=== PATIENT | male | born 1970 | race Two or more races ===

== ENCOUNTER 2017-03-30 15:31 | Emergency (ER) | payer SELFPAY ==
[~2017-03-30] VITALS: Ht 182.9 cm; Wt 86.2 kg
[2017-03-30 15:54] LABS: BASOPHILS # (AUTO) 0.1 /CMM (0.0-0.2); BASOPHILS % (AUTO) 0.9 % (0.0-2.0); EOSINOPHILS # (AUTO) 0.8 /CMM (0.0-0.7); EOSINOPHILS % (AUTO) 12.2 % (0.0-6.0); HEMATOCRIT 33 % (39-51); HEMOGLOBIN 10.6 g/dL (13.5-17.5); LYMPHOCYTES # (AUTO) 1.7 /CMM (0.8-4.8); LYMPHOCYTES % (AUTO) 25.5 % (20.0-44.0); MEAN CORPUSCULAR HEMOGLOBIN 27 PG (26.0-33.0); MEAN CORPUSCULAR HGB CONC 32 g/dl (31.0-36.0); MEAN CORPUSCULAR VOLUME 84 fL (80-96); MONOCYTES # (AUTO) 0.5 /CMM (0.1-1.30); MONOCYTES % (AUTO) 7.2 % (2.0-12.0); NEUTROPHILS # (AUTO) 3.6 /CMM (1.8-8.9); NEUTROPHILS % (AUTO) 54.2 % (43.0-81.0); PLATELET COUNT (AUTO) 231 /CMM (150-450); RDW COEFFICIENT OF VARIATION 16.1 (11.5-15.0); RED BLOOD CELL COUNT(AUTO) 3.92 MIL/uL (4.5-6.0); WHITE BLOOD COUNT (AUTO) 6.6 K/uL (4.3-11.0)
[2017-03-30] MEDS ORDERED: HYDROCODONE/APAP 5/325MG 1 EACH TABLET ONE (15:58)
[2017-03-30] MEDS ORDERED: ONDANSETRON 4 MG TAB.RAPDIS ONE (15:58)
[2017-03-30] MEDS: HYDROCODONE/APAP 5/325MG 1 EACH TABLET PO ONE (16:00)
[2017-03-30] MEDS: ONDANSETRON 4 MG TAB.RAPDIS SL ONE (16:00)
[2017-03-30 16:09] LABS: CALCIUM, SERUM 8.9 mg/dL (8.5-10.1); POTASSIUM 4.6 mmol/L (3.5-5.1)
--- NOTE | 2017-03-30 16:10 | NUR ---
[facility] [address] [facility] C/O NON RADIATING BACK PAIN, PT WAS D/C YESTERDAY. BACK PAIN 01/19.
--- NOTE | 2017-03-30 16:20 | NUR ---
Patient discharged to home in stable condition. Written and verbal after care instructions given. Patient verbalizes understanding of instruction.
[2017-03-30 16:21] VITALS: BP 129/76
--- NOTE | 2017-03-30 16:25 | NUR ---
GABRIELE received a call from charger tester Gener in ED requesting for social service consult for homelessness. GABRIELE met with pt. and his bedside. Pt. is alert and oriented x4. Pts' states that they have been homeless for the past few years. They both receive SSI benefits. When SW inquired as to what they do with their money, the stated, they do not budget well. GABRIELE gave pt. and his homeless resources and winter correction list. Pt. to be discharged to [address] [place] [address], for the shuttle cotton picker for the winter correction at [facility]. GABRIELE arranged for taxi voucher for pt. to be transported to the above mentioned address. GABRIELE also informed pt. to go to [facility] to refill his prescriptions since they offer a discounted program. No other social service needs are required at this time.
== END 2017-03-30 16:22 | disposition home or self-care (01) ==
LOC: ER 15:33
DX: M54.5 Low back pain (principal); D64.9 Anemia, unspecified; I12.9 Hypertensive chronic kidney disease with stage 1 through stage 4 chronic kidney disease, or unspecified chronic kidney disease; N18.9 Chronic kidney disease, unspecified; E11.22 Type 2 diabetes mellitus with diabetic chronic kidney disease; D63.1 Anemia in chronic kidney disease; E78.00 Pure hypercholesterolemia, unspecified; F17.210 Nicotine dependence, cigarettes, uncomplicated; Z88.1 Allergy status to other antibiotic agents; Z95.818 Presence of other cardiac implants and grafts
CPT/HCPCS: 36415; 80048; 85025; 99284; A4606; Q0162; Z7610

== ENCOUNTER 2017-04-03 17:35 | Inpatient (IN) | payer SELFPAY ==
[~2017-04-03] VITALS: Ht 182.9 cm; Wt 83.2 kg
--- NOTE | 2017-04-03 17:42 | NUR ---
PT ELZBIETA FROM THE STREETS TO ER BED 15. C/O DIFFUSE ABDOMINAL PAIN., ANURIA. FEVER X 3 DAYS NOW. HYPERTENSIVE SAND MILL OPERATOR FACING SAND. GOWNED AND PLACED ON MONITOR. AWAITING MD CROWLEY.
--- NOTE | 2017-04-03 18:30 | NUR ---
[place] SAM AT BEDSIDE FOR EVAL.
--- NOTE | 2017-04-03 18:42 | NUR ---
Note marcello in EDM - 04/03/17 at 1849 by ELSA PT BIBRA FROM THE STREETS TO ER BED 15. C/O DIFFUSE ABDOMINAL PAIN., ANURIA. FEVER X 3 DAYS NOW. 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 GOWNED AND PLACED ON MONITOR. AWAITING MD CROWLEY.
--- NOTE | 2017-04-03 18:42 | NUR ---
IV LINE STARTED BLOOD DRAWN AND SENT TO LAB.
--- NOTE | 2017-04-03 18:49 | NUR ---
PT TO RADIOLOGY FOR ABDOMINAL CT SCAN VIA WHEELCHAIR.
[2017-04-03] MEDS ORDERED: IV NS 0.9% 1,000 ML BAG IV ONE (19:00)
[2017-04-03 19:02] LABS: BASOPHILS % (AUTO) 0.4 % (0.0-2.0); EOSINOPHILS # (AUTO) 0.5 /CMM (0.0-0.7); EOSINOPHILS % (AUTO) 6.9 % (0.0-6.0); HEMATOCRIT 38 % (39-51); HEMOGLOBIN 12.6 g/dL (13.5-17.5); LYMPHOCYTES # (AUTO) 0.6 /CMM (0.8-4.8); LYMPHOCYTES % (AUTO) 7.8 % (20.0-44.0); MEAN CORPUSCULAR HEMOGLOBIN 27 PG (26.0-33.0); MEAN CORPUSCULAR HGB CONC 33 g/dl (31.0-36.0); MEAN CORPUSCULAR VOLUME 82 fL (80-96); MONOCYTES # (AUTO) 0.4 /CMM (0.1-1.30); NEUTROPHILS # (AUTO) 5.8 /CMM (1.8-8.9); NEUTROPHILS % (AUTO) 78.9 % (43.0-81.0); PLATELET COUNT (AUTO) 227 /CMM (150-450); RDW COEFFICIENT OF VARIATION 15.8 (11.5-15.0); RED BLOOD CELL COUNT(AUTO) 4.64 MIL/uL (4.5-6.0); WHITE BLOOD COUNT (AUTO) 7.3 K/uL (4.3-11.0)
[2017-04-03] MEDS ORDERED: LIDOCAINE 2% JEL UROJET 10 ML MM ONE (19:06)
[2017-04-03 19:15] LABS: CARBON DIOXIDE 22 mmol/L (21-32); CHLORIDE 111 mmol/L (98-107); GLUCOSE 171 mg/dL (74-106); POTASSIUM 4.8 mmol/L (3.5-5.1); SODIUM SERUM 139 mmol/L (136-145); UREA NITROGEN, BLOOD 19 mg/dL (7-18)
[2017-04-03 19:25] LABS: ALANINE AMINOTRANSFERASE 22 U/L (12-78); ALBUMIN 2.8 g/dL (3.4-5.0); ALKALINE PHOSPHATASE 149 U/L (46-116); ASPARTATE AMINOTRANSFERASE 17 U/L (15-37); BILIRUBIN,TOTAL 0.2 mg/dL (0.2-1.0); LIPASE 102 U/L (73-393); TOTAL PROTEIN, SERUM 7.5 g/dL (6.4-8.2)
[2017-04-03 19:29] LABS: TROPONIN I < 0.017 ng/mL (0.00-0.056)
[2017-04-03 19:54] LABS: INR 0.96 (0.87-1.13)
[2017-04-03] MEDS ORDERED: MORPHINE SULFATE INJ 2 MG/ML DISP.SYRIN IV ONE (20:00)
[2017-04-03] MEDS ORDERED: MORPHINE SULFATE INJ 4 MG/ML DISP.SYRIN ONE (20:03)
[2017-04-03 20:04] LABS: APPEARANCE,URINE Slightly Cloudy (CLEAR); BILIRUBIN,URINE Negative (NEGATIVE); BLOOD, URINE Moderate Ery/uL (NEGATIVE); COLOR,URINE Yellow (YELLOW); KETONES,URINE Negative (NEGATIVE); LEUKOCYTE ESTERASE ,URINE Negative (NEGATIVE); NITRITE, URINE Negative (NEGATIVE); PH,URINE 5.5 (5.0-8.0); PROTEIN,URINE >=300 mg/dl (NEGATIVE); UGLUCOSE 100 MG/DL mg/dL (NEGATIVE); UROBILINOGEN,URINE 0.2 EU/dL (0.2)
[2017-04-03 20:15] LABS: WBC,URINE 0-2 /HPF (0-3)
[2017-04-03 20:16] LABS: BACTERIA,URINE Few /HPF (None Seen); SQUAMOUS EPITHELIAL CELL,UR Few /HPF (None Seen); URINE AMORPHOUS URATE Many /HPF (None Seen)
[2017-04-03] MEDS ORDERED: OSELTAMIVIR PHOSPHATE 75 MG CAPSULE ONE (22:40)
[2017-04-03] MEDS ORDERED: CEFTRIAXONE 1GM BAG (ER ONLY) 50 ML IV ONE (22:40)
[2017-04-03] MEDS ORDERED: IV NS 0.9% 1,000 ML IV PRN (22:57)
[2017-04-03] MEDS ORDERED: HYDROCODONE/APAP 10/325MG 1 EA TABLET PO PRN ×2 (23:00→23:45)
[2017-04-03] MEDS ORDERED: ZOLPIDEM TARTRATE 5 MG TABLET PO PRN ×2 (23:00→23:45)
[2017-04-03] MEDS ORDERED: HYDROCODONE/APAP 5/325MG 1 EACH TABLET PO PRN ×2 (23:00→23:45)
[2017-04-03] MEDS ORDERED: MAG HYDROX/AL HYDROX/SIMETH 30 ML UDC PO PRN ×2 (23:00→23:45)
[2017-04-03] MEDS ORDERED: OSELTAMIVIR PHOSPHATE 75 MG CAPSULE PO ONE (23:00)
[2017-04-03] MEDS ORDERED: ACETAMINOPHEN 325 MG TABLET PO PRN (23:00)
[2017-04-03] MEDS ORDERED: ONDANSETRON HCL/PF 4 MG/2 ML VIAL IVP PRN ×2 (23:00→23:45)
[2017-04-03] MEDS ORDERED: Z GUARD REMEDY 2 OZ OINT TP PRN ×2 (23:00→23:45)
[2017-04-03] MEDS ORDERED: MAGNESIUM HYDROXIDE 30 ML UDC PO PRN ×2 (23:00→23:45)
[2017-04-03] MEDS ORDERED: CEFTRIAXONE 1 G in IV D5W 50 ML IV SCH ×2 (23:00→23:45)
[2017-04-03] MEDS ORDERED: CEFTRIAXONE 1GM BAG (ER ONLY) 1 GM/50 ML PIGGYBACK IV ONE (23:00)
--- NOTE | 2017-04-03 23:05 | NUR ---
REPORT GIVEN TO SHAN. PT AWAITING TRANSFER TO FLOOR.
[2017-04-04] VITALS: BP 134/103
[2017-04-04 00:10] VITALS: BP 134/103
--- NOTE | 2017-04-04 00:10 | NUR ---
RN NOTES RECEIVED PT IN ER WITH DX. OF UTI, FLU, RENAL FAILURE, A/OX4, HOMELESS, SR ON TELE MONITOR HR-98, TEMP 102- DR. GARCIA,MONY AT BEDSIDE, HE'S AWARE OF PT. TEMPERATURE,BED BATH RENDERED ADMISSION INSTRUCTION WAS GIVEN , CALL LIGHT WITHIN REACH, SIDERAILS UPX2 CONTINUE TO MONITOR
[2017-04-04] MEDS: IV NS 0.9% 1,000 ML IV PRN ×2 (01:51→15:56)
[2017-04-04 04:46] VITALS: BP 161/86
[2017-04-04] MEDS ORDERED: ACYCLOVIR IV 1 GM in IV D5W 250 ML IV SCH (05:00)
[2017-04-04] MEDS ORDERED: ACYCLOVIR IV 1 GM/20 ML VIAL IV ONE (05:00)
[2017-04-04] MEDS ORDERED: HYDROCODONE/APAP 5/325MG 1 EACH TABLET ONE (05:24)
[2017-04-04] MEDS ORDERED: ACETAMINOPHEN 325 MG TABLET ONE (05:25)
--- NOTE | 2017-04-04 05:33 | NUR ---
RN NOTES COMPLAINED OF GENERALIZED PAIN- NORCO 5/325 MG PO GIVEN ORDERED, V/S STABLE
[2017-04-04] MEDS: ACETAMINOPHEN 325 MG TABLET PO PRN ×2 (05:48→16:28)
--- NOTE | 2017-04-04 05:48 | NUR ---
RN NOTES PT HAS FEVER OF 102- TYLENOL 650 MG PO GIVEN ORDER
--- NOTE | 2017-04-04 06:12 | NUR ---
RN NOTES SPOKE TO MONY CARPENTER AND CLARIFY PT. DIET. DR. GARCIA WANTS PT ON NPO EXCEPT MEDS AND ACCU CHECK ORDER WAS GIVEN. ORDER NOTED AND CARRIED OUT
[2017-04-04] MEDS: BLOOD SUGAR DIAGNOSTIC 1 EACH STRIP IN SCH ×4 (06:26→22:17)
[2017-04-04] MEDS ORDERED: INSULIN REGULAR, HUMAN 100 UNIT/ML 3 ML VIAL SQ PRN (06:30)
[2017-04-04] MEDS ORDERED: DEXTROSE 50%-WATER 50 ML DISP.SYRIN IV PRN (06:30)
--- NOTE | 2017-04-04 06:32 | NUR ---
RN NOTES PT. TEMP WENT DOWN TO 99.8, BLOOD SUGAR--148- PT IS ON NPO NO COVERAGE GIVEN, MORNING CARER RENDERED, CALL LIGHT WITHIN REACH, SIDERAILS UP[X2 PT. NEEDS ATTENDED
--- NOTE | 2017-04-04 07:40 | NUR ---
HOT MILL SHEARER OPENING NOTE PATIENT IS ALERT AND ORIENTED X4. NO PAIN AT THIS TIME. NO SOB OR DISTRESS NOTED. CALL LIGHT WITHIN REACH. SAFETY MEASURES IMPLEMENTED. ABLE TO COMMUNICATE NEEDS. IV ON RIGHT FOREARM INTACT AND PATENT NO REDNESS OR SWELLING NOTED. IV FLUIDS RUNNING AT 100 ML/HR AT THIS TIME AND TOLERATING WELL. KAYE CATHETER IN PLACE, CLEAR YELLOW URINE NO SEDIMENT NOTED. BLOOD SUGARS TO BE MONITORED THROUGHOUT SHIFT. POSITIVE INFLUENZA TEST RESULTS. NPO EXCEPT MEDS AT THIS TIME. WILL CONTINUE TO MONITOR THROUGHOUT SHIFT
[2017-04-04 08:00] VITALS: BP 131/69
[2017-04-04] MEDS: OSELTAMIVIR PHOSPHATE 75 MG CAPSULE PO SCH ×2 (08:40→16:28)
--- NOTE | 2017-04-04 08:40 | NUR ---
RN NOTE PATIENT REQUESTING FOR PAIN MEDICATION. PAIN 8/10 ON LOWER BACK. NORCO 10/325 GIVEN WILL REASSESS PAIN LEVEL
[2017-04-04] MEDS ORDERED: OSELTAMIVIR PHOSPHATE 75 MG CAPSULE PO SCH (09:00)
[2017-04-04] MEDS ORDERED: CEFTRIAXONE 1 G in IV D5W 50 ML IV SCH (10:00)
--- NOTE | 2017-04-04 10:54 | NUR ---
RN NOTE [facility]
[2017-04-04] MEDS ORDERED: ACYCLOVIR IV 0.75 GM in IV D5W 250 ML IV SCH (13:00)
[2017-04-04 16:00] VITALS: BP 179/97
--- NOTE | 2017-04-04 18:33 | NUR ---
MS RN CLOSING NOTE PATIENT IS ALERT AND ORIENTED x4. NO PAIN AT THIS TIME. NO SOB OR DISTRESS NOTED. CALL LIGHT WITHIN REACH AT ALL TIMES. SAFETY MEASURES IMPLEMENTED. ABLE TO COMMUNICATE NEEDS. AWAITING KEG WASHER CONSULT; HOMELESS. ALL DUE MEDICATIONS GIVEN ORDERED. ALL NURSING CARE NEEDS ATTENDED TO NEEDED. X-RAY OF LUMBAR PUNCTURE STILL PENDING. BLOOD SUGAR MONITORED THROUGHOUT SHIFT, LAST BS-114 NO INSULIN NEEDED. TEMPERATURE 99.5 PATIENT REQUESTED TYLENOL, TEMPERATURE DOWN TO 98.6 AT THIS TIME. NO LABS FOR TOMORROW. WILL ENDORSE TO CERTIFIED PERSONAL FINANCE COUNSELOR NURSE FOR ARMIDA
[2017-04-04 20:00] VITALS: BP_SYST 143; BP_DIAS 83; BP_DIAS 97
--- NOTE | 2017-04-04 22:20 | NUR ---
RN NOTES BLOOD SUGAR-134- REFUSED INSULIN
[2017-04-05] MEDS: IV NS 0.9% 1,000 ML IV PRN (03:57)
[2017-04-05] MEDS: BLOOD SUGAR DIAGNOSTIC 1 EACH STRIP IN SCH ×3 (06:24→17:18)
--- NOTE | 2017-04-05 06:46 | NUR ---
RN NOTES AWAKE IV FLUID RUNNING, IV LINE PATENT NO REDNESS OR SWOLLEN, F/C DRAINING CLEAR YELLOW URINE, CALL LIGHT WITHIN REACH, SIDRAILSUPX2 PT. NEEDS ATTENDED
--- NOTE | 2017-04-05 07:25 | NUR ---
ms rn initial notes Received patient in bed, awake, head of bed elevated, no SOB or distress noted. Alert and oriented x 4, verbally responsive and able to make needs known. IV intact and patent with IVF infusing well. Kept patient clean and comfortable in bed, call light with in patient reach, will continue to monitor accordingly.
[2017-04-05 08:00] VITALS: BP 158/94
[2017-04-05] MEDS: OSELTAMIVIR PHOSPHATE 75 MG CAPSULE PO SCH ×2 (08:33→17:17)
[2017-04-05] MEDS ORDERED: AMLODIPINE BESYLATE 5 MG TABLET PO SCH (10:30)
[2017-04-05] MEDS ORDERED: OSEL75CA PO (15:16)
[2017-04-05] MEDS ORDERED: AMLO5TAB2 PO (15:16)
[2017-04-05 16:00] VITALS: BP 155/95
--- NOTE | 2017-04-05 19:10 | NUR ---
ms field return repairer notes Discharge instructions given to patient and able to understand instructions. Signed discharge paper and belonging list no items missing. Prescription given. Informed to follow up with primary health care physician in 1-2 weeks. Vital signs checked and recorded. Pictures taken by night shift manager and filed in the chart. Refused flu vaccine due to patient already had his vaccine this year. <65 years old for pneumonia vaccine. Patient left the hospital in stable condition accompanied by DEPUTY CLERK OF COURT assigned and left via taxi going to the address he gave. MD and charge nurse made aware. made aware (Gera).
[2017-04-05] MEDS ORDERED: DOXYCYCLINE HYCLATE (100 MG) 100 MG TABLET PO SCH (21:00)
[2017-04-05] MEDS ORDERED: MUPIROCIN OINT 2% 22 GM TUBE SCH (21:00)
== END 2017-04-05 18:40 | disposition home or self-care (01) | DRG 152 ==
LOC: ER 17:36 → MED 04-04 00:09 → TELE 04-04 01:50 → MED 04-04 09:39
DX: J11.1 Influenza due to unidentified influenza virus with other respiratory manifestations (principal); N17.0 Acute kidney failure with tubular necrosis; E11.22 Type 2 diabetes mellitus with diabetic chronic kidney disease; E11.9 Type 2 diabetes mellitus without complications; D64.9 Anemia, unspecified; E78.5 Hyperlipidemia, unspecified; F17.200 Nicotine dependence, unspecified, uncomplicated; I25.10 Atherosclerotic heart disease of native coronary artery without angina pectoris; Z95.5 Presence of coronary angioplasty implant and graft; Z89.411 Acquired absence of right great toe; Z79.4 Long term (current) use of insulin; Z59.0 Homelessness; Z88.1 Allergy status to other antibiotic agents; I12.9 Hypertensive chronic kidney disease with stage 1 through stage 4 chronic kidney disease, or unspecified chronic kidney disease; N18.9 Chronic kidney disease, unspecified; H54.61 Unqualified visual loss, right eye, normal vision left eye; H40.9 Unspecified glaucoma; Z22.322 Carrier or suspected carrier of Methicillin resistant Staphylococcus aureus
CPT/HCPCS: 36415; 71010-TC; 80048-TC; 80076-TC; 81000-TC; 82962-TC; 83690-TC; 84484-TC; 85025-TC; 85730-TC; 87081-TC; 87400; A4606; J0133; J0696; J1815; J2270; J3490; J7030; J7040; J7050; J7060; Z7610

== ENCOUNTER 2021-03-03 21:56 | Inpatient (IN) | payer OTHER ==
[~2021-03-03] VITALS: Ht 182.9 cm; Wt 75.3 kg
[~2021-03-03 21:56] MED LIST: AMLO-212 PO; OSEL75CA PO
[2021-03-03] MEDS ORDERED: ACETAMINOPHEN 650 MG/SUPP.RECT RC PRN (22:30)
[2021-03-03] MEDS ORDERED: Z GUARD REMEDY 2 OZ OINT TP PRN (22:30)
[2021-03-03] MEDS ORDERED: ONDANSETRON HCL/PF 4 MG/2 ML VIAL IVP PRN (22:30)
--- NOTE | 2021-03-03 23:30 | NUR ---
AVIATION ELECTRONIC WARFARE OPERATOR NOTES: RECEIVED PATIENT VIA GURNEY C/O [facility] FROM [facility], PATIENT IS DIRECT ADMIT, ALERT ORIENTED X4, DIAGNOSIS IS NSTEMI WITH COMPLAIN OF CHEST PAIN, PATIENT IS PARAPLEGIA, BLIND, ON HEMODIALYSIS PATIENT WITH HD PORT AT [facility], CLEAN NO BLEEDING WAS OBSERVED, PATIENT HAS IV LINE #20 WITH ONGOING NSS@75ML/HOUR INFUSING WELL, PATIENT ON TELE MONITORING SR-75 NO SYMPTOMS WAS OBSERVED, SKIN ASSESSMENT DONE, PICTURE TAKEN AND DOCUMENTED, INVENTORY DONE , PATIENT WAS ORIENTED TO ROOM, REMIND TO USE CALL LIGHTS WHEN NEEDED ASSISTANCE, PATIENT ON RM AIR NO SOB WAS OBSERVED, ON SCHEDULE, PATIENT ON NPO, KEPT CLEAN AND DRY ALL NEEDS MET, WILL CONTINUE TO MONITOR.
--- NOTE | 2021-03-04 00:30 | NUR ---
RN NOTES: WENT TO PATIENT ROOM TO HAVE HIM SIGN THE CONSENT FORM FOR EDG EXPLAIN THE PROCEDURE THE PATIENT KEPT REFUSING AND STATED THAT HIS NOT GOING TO SIGN ANY PAPERS HIS WILLDO IT AND WILL BE COMING IN THE MORNING, EXPLAIN THE RISKAND BENEFITS BUT PATIENT KEPT REFUSING, CN MADE AWARE.
[2021-03-04] MEDS ORDERED: ACET325T53 PO (01:00)
[2021-03-04] MEDS ORDERED: ACET-73 PO (01:00)
[2021-03-04] MEDS ORDERED: ACET325T53 MC (01:14)
--- NOTE | 2021-03-04 01:30 | NUR ---
RN NOTES; MRSA SPECIMEN, TAKEN ON BOTH NARES, SPECIMEN PLACE IN THE REFRIGERATOR
--- NOTE | 2021-03-04 02:00 | NUR ---
RN NOTES RECEIVED CALL FROM LABORATORY LESVIA TO INFORM US THAT TYPE AND SCREEN FOR PATIENT CANNOT BE DONE RIGHT AWAY NO AVAILABLE CLINICAL RADAR ENGINEERING TEACHER CLS TODAY BOTH HERE AND [facility], LAB TO BE DONE AT 0600AM, CN WAS MADE AWARE
[2021-03-04] MEDS ORDERED: MORP1SYR2 IV (02:26)
[2021-03-04] MEDS ORDERED: DAPT500V2 IV (02:26)
[2021-03-04] MEDS ORDERED: MAGN400O6 PO (02:26)
[2021-03-04] MEDS ORDERED: [UNRECOGNIZED DRUG - CODE] IV (02:26)
[2021-03-04] MEDS ORDERED: ATOR40TA PO ×2 (02:26)
[2021-03-04] MEDS ORDERED: LEVO75TA7 PO (02:26)
[2021-03-04] MEDS ORDERED: ISOS30TA86 PO (02:26)
[2021-03-04] MEDS ORDERED: METO25TA6 PO (02:26)
[2021-03-04] MEDS ORDERED: PRED5DRO24 OP (02:26)
[2021-03-04] MEDS ORDERED: CYCL10TA9 PO (02:26)
[2021-03-04] MEDS ORDERED: OLAN10TA3 PO (02:26)
[2021-03-04] MEDS ORDERED: VALP250C3 PO (02:26)
[2021-03-04] MEDS ORDERED: PRED1TAB PO (02:26)
[2021-03-04] MEDS: IV NS 0.9% 1,000 ML IV PRN (02:59)
[2021-03-04 04:42] VITALS: BP 134/76
[2021-03-04] MEDS: MORPHINE SULFATE INJ 2 MG/ML DISP.SYRIN IV PRN ×4 (04:42→20:45)
[2021-03-04] MEDS ORDERED: PIPERACILLIN /TAZOBACTAM 2.25 G in IV D5W 50 ML IV SCH (05:00)
[2021-03-04] MEDS ORDERED: PIPERACILLIN /TAZOBACTAM 2.25 G VIAL IV ONE (05:53)
[2021-03-04] MEDS ORDERED: SORBITOL SOLUTION 30 ML PO ONE (06:00)
[2021-03-04 06:39] LABS: BASOPHILS # (AUTO) 0.1 K/uL (0.0-0.2); BASOPHILS % (AUTO) 1.7 % (0.0-2.0); EOSINOPHILS % (AUTO) 10.4 % (0.0-6.0); HEMATOCRIT 23 % (39-51); HEMOGLOBIN 7.6 g/dL (13.5-17.5); LYMPHOCYTES # (AUTO) 1.2 K/uL (0.8-4.8); LYMPHOCYTES % (AUTO) 18.4 % (20.0-44.0); MEAN CORPUSCULAR HGB CONC 33 g/dl (31.0-36.0); MEAN CORPUSCULAR VOLUME 92 fL (80-96); MONOCYTES # (AUTO) 0.9 K/uL (0.1-1.30); MONOCYTES % (AUTO) 14.4 % (2.0-12.0); NEUTROPHILS # (AUTO) 3.6 K/uL (1.8-8.9); NEUTROPHILS % (AUTO) 55.1 % (43.0-81.0); PLATELET COUNT (AUTO) 90 K/uL (150-450); RED BLOOD CELL COUNT(AUTO) 2.53 MIL/uL (4.5-6.0); WHITE BLOOD COUNT (AUTO) 6.5 K/uL (4.3-11.0)
[2021-03-04 06:53] LABS: ALBUMIN 2.3 g/dL (3.4-5.0); BILIRUBIN,TOTAL 0.4 mg/dL (0.2-1.0); CALCIUM, SERUM 7.4 mg/dL (8.5-10.1); MAGNESIUM 2.1 mg/dL (1.8-2.4); POTASSIUM 6.1 mmol/L (3.5-5.1); TOTAL PROTEIN, SERUM 6.3 g/dL (6.4-8.2)
[2021-03-04 07:25] LABS: CREATININE 10.4 mg/dL (0.6-1.3); PHOSPHORUS 10.8 mg/dL (2.5-4.9)
--- NOTE | 2021-03-04 07:27 | NUR ---
DOCUMENT CONTROL MANAGER CLOSING NOTES: PATIENT SLEEP IN BED COMFORTABLY, BED IN LOW POSITION CALL LIGHTS WITHIN REACH, NO COMPLAIN OF PAIN AND DISCOMFORT AT THIS TIME, NPO, ALERT ORIENTED X4 BR, PARAPLEGIA, BLIND, WITH ONGOING IV HYDRATION OF 0.9 NSS@75ML/HR INFUSING WELL, IV ON LEFT WRIST#18, PATIENT KEPT CLEAN AND DRY, ALL NEEDS MET, ENDORSE TO INCOMING SHIFT.
[2021-03-04 08:00] VITALS: BP 144/78
--- NOTE | 2021-03-04 08:03 | NUR ---
RN OPENING NOTE PATIENT AWAKE IN BED RESTING. A/O X4. NO S/S OF PAIN NOTED AT THIS TIME. ON ROOM AIR, NO DISTRESS OR SHORTNESS OF BREATH NOTED. 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 IV ACCESS LEFT WRIST #20G. FALL AND SAFETY MEASURES IN PLACE, BED ALARM ON, BED IN LOW AND LOCK POSITION, CALL LIGHT AND TABLE WITHIN EASY REACH, SIDE RAILS UP X2. WILL CONTINUE TO MONITOR.
[2021-03-04] MEDS: PANTOPRAZOLE 40 MG VIAL IV SCH (08:39)
[2021-03-04] MEDS: prednisoLONE ACETATE 1% SUSP 5 ML BOTTLE RIGHTEYE SCH ×4 (08:50→20:16)
[2021-03-04] MEDS ORDERED: DAPTOMYCIN 500 MG/VIAL VIAL IV SCH (09:00)
[2021-03-04] MEDS ORDERED: VALPROIC ACID 250 MG/5 ML UDC PO SCH (09:00)
[2021-03-04 10:44] LABS: EOSINOPHILS % (MANUAL) 5 % (0-4); LYMPHOCYTES % (MANUAL) 25 % (16-48); MONOCYTES % (MANUAL) 14 % (0-11.0); MYELOCYTES % 1 % (0-0); NEUTROPHILS % (MANUAL) 55 (42-76)
[2021-03-04 12:00] VITALS: BP 153/85
[2021-03-04] MEDS ORDERED: PIPERACILLIN /TAZOBACTAM 2.25 G VIAL IV SCH (13:00)
[2021-03-04] MEDS: PIPERACILLIN /TAZOBACTAM 2.25 G in IV D5W 50 ML IV SCH ×2 (15:09→20:16)
--- NOTE | 2021-03-04 15:39 | NUR ---
GABRIELE recieved eval for a family member requesting a letter for [facility]. SW wrote a letter for pt.'s [Sima]. Copy of the letter is placed in pt.'s chart.
[2021-03-04 16:00] VITALS: BP 133/69
[2021-03-04] MEDS ORDERED: DAPTOMYCIN 500 MG in IV NS 0.9% 50 ML IV SCH (16:00)
[2021-03-04] MEDS ORDERED: PEG 3350/NA SULF,BICARB,CL/KCL 4,000 ML BOTTLE PO ONE (18:00)
--- NOTE | 2021-03-04 18:42 | NUR ---
RN CLOSING NOTE PT RESTING IN BED ASLEEP COMFORTABLE. ON RA WITH NO SOB OR RESPIRATORY DISTRESS PRESENT. A/O X4 AND SOUTH KOREAN/KINYARWANDA SPEAKING.NO COMPLAINT OF PAIN OR NAUSEA. NO BUSINESS DEVELOPMENT OFFICER NEEDED. NO CLERICAL PROOFREADER PRESENT. NO EDEMA PRESENT. AMBULATORY WITH 1 PERSON ASSIST. COMMODE AT BEDSIDE. NPO POST MIDNIGHT EXCEPT MEDS PER DR PACK. EGD/COLONOSCOPY SCHEDULED FOR TOMORROW. BOWEL PREP STARTED. IV PRESENT ON L WRIST 20G AND FLUSHES WELL. LABS AND ORDERS REVIEWED. SAFETY MEASURES IN PLACE. SIDE RAILS RAISED. BED LOWERED. CALL LIGHT WITHIN REACH. WILL CONTINUE TO MONITOR.
--- NOTE | 2021-03-04 19:30 | NUR ---
RN NOTE RECEIVED PATIENT IN BED RESTING ALERT ORIENTED X4 VERBALLY RESPONSIVE ON ROOM AIR O2:98% IV SITE IS ON LEFT WRIST INTACT PATENT ON IV HYDRATION NS 75CC/HR,NPO AFTER MIDNIGHT FOR EGD PROCEDURE,SAFETY MEASURE IMPLEMENT BED IN LOW POSITON AND LOCKED CALL LIGHT WITHIN REACH,CALL LIGHT WITHIN REACH CONTINUE TO MONITOR.
[2021-03-04 20:00] VITALS: BP 151/71
[2021-03-04 20:14] VITALS: BP 151/71
[2021-03-04 21:53] LABS: HEMATOCRIT 24 % (39-51); HEMOGLOBIN 7.9 g/dL (13.5-17.5); MEAN CORPUSCULAR HGB CONC 33 g/dl (31.0-36.0); MEAN CORPUSCULAR VOLUME 90 fL (80-96); PLATELET COUNT (AUTO) 95 K/uL (150-450); RED BLOOD CELL COUNT(AUTO) 2.62 MIL/uL (4.5-6.0); WHITE BLOOD COUNT (AUTO) 5.8 K/uL (4.3-11.0)
[2021-03-05] VITALS: BP 146/68
[2021-03-05] MEDS: IV NS 0.9% 1,000 ML IV PRN (02:28)
[2021-03-05 04:00] VITALS: BP 123/78
[2021-03-05 04:31] VITALS: BP 123/78
[2021-03-05] MEDS: PIPERACILLIN /TAZOBACTAM 2.25 G in IV D5W 50 ML IV SCH ×2 (04:43→12:55)
[2021-03-05] MEDS ORDERED: SORBITOL SOLUTION 30 ML PO ONE (06:00)
[2021-03-05 06:07] LABS: CALCIUM, SERUM 6.9 mg/dL (8.5-10.1); POTASSIUM 4.6 mmol/L (3.5-5.1)
[2021-03-05] MEDS ORDERED: SORBITOL SOLUTION 30 ML ONE ×2 (06:18→06:24)
[2021-03-05 06:33] LABS: BASOPHILS # (AUTO) 0.1 K/uL (0.0-0.2); BASOPHILS % (AUTO) 1.6 % (0.0-2.0); EOSINOPHILS % (AUTO) 11.1 % (0.0-6.0); HEMATOCRIT 22 % (39-51); HEMOGLOBIN 7.3 g/dL (13.5-17.5); LYMPHOCYTES # (AUTO) 1.2 K/uL (0.8-4.8); LYMPHOCYTES % (AUTO) 23.5 % (20.0-44.0); MEAN CORPUSCULAR HGB CONC 33 g/dl (31.0-36.0); MEAN CORPUSCULAR VOLUME 91 fL (80-96); MONOCYTES # (AUTO) 0.9 K/uL (0.1-1.30); MONOCYTES % (AUTO) 16.5 % (2.0-12.0); NEUTROPHILS # (AUTO) 2.5 K/uL (1.8-8.9); NEUTROPHILS % (AUTO) 47.3 % (43.0-81.0); PLATELET COUNT (AUTO) 96 K/uL (150-450); WHITE BLOOD COUNT (AUTO) 5.3 K/uL (4.3-11.0)
--- NOTE | 2021-03-05 06:53 | NUR ---
RN NOTE PATIENT REMAINS ON ALERT ORIENTED X4 VERBALLY RESPONSIVE ON ROOM AIR NO SOB NOT ACUTE DISTRESS NOTED,NPO AFTER MIDNIGHT FOR MORNING PROCEDURE KEPT CLEAN AND DRY ALL THE TIME ALL NEEDS MET ENDORSE NEXT COMING SHIFT FOR CONTINUATION OF CARE.
--- NOTE | 2021-03-05 07:15 | NUR ---
PICK PACK WORKER NOTES - OPENING: RECEIVED REPORT FROM RN AT Pt BEDSIDE. Pt EYES CLOSED, RR EVEN AND UNLABORED. NAD AT THIS TIME. 0900 Pt ALERT AND ORIENTED TO BASELINE. CALM, COOPERATIVE AND COMMUNICATIVE.
--- NOTE | 2021-03-05 07:16 | NUR ---
RN NOTES SORBITOL GIVEN BY MUD MIXER RN DANNIE.
[2021-03-05 08:00] VITALS: BP 102/71
[2021-03-05 09:00] VITALS: BP 102/71
[2021-03-05] MEDS ORDERED: VALPROIC ACID 250 MG/5 ML UDC PO SCH (09:00)
[2021-03-05] MEDS: prednisoLONE ACETATE 1% SUSP 5 ML BOTTLE RIGHTEYE SCH ×3 (09:19→16:33)
[2021-03-05] MEDS: PANTOPRAZOLE 40 MG VIAL IV SCH (09:25)
--- NOTE | 2021-03-05 09:35 | NUR ---
RN NOTES SPOKE W/ FITO FROM SURGERY. PER FITO, WILL CONDENSER CLEANER PATIENT IN ABOUT AN HOUR FOR EGD/COLONOSCOPY PROCEDURE.
[2021-03-05] MEDS: MORPHINE SULFATE INJ 2 MG/ML DISP.SYRIN IV PRN (09:58)
[2021-03-05 09:59] LABS: EOSINOPHILS % (MANUAL) 12 % (0-4); LYMPHOCYTES % (MANUAL) 16 % (16-48); MONOCYTES % (MANUAL) 15 % (0-11.0); NEUTROPHILS % (MANUAL) 57 (42-76)
--- NOTE | 2021-03-05 10:30 | NUR ---
INSTRUCTIONAL TECHNOLOGY COORDINATOR NOTE: Pt OFF UNIT FOR COLONOSCOPY
--- NOTE | 2021-03-05 10:31 | NUR ---
RN NOTES PATIENT PICKED UP FOR EGD/COLONOSCOPY PROCEDURE VIA PATIENT'S OWN BED, ACCOMPANIED BY 2 OR NURSES.
[2021-03-05] MEDS ORDERED: ROCURONIUM BROMIDE 50 MG/5 ML ONE (11:15)
[2021-03-05] MEDS ORDERED: SIMETHICONE SUSP 40 MG/0.6 ML BOTTLE ONE (11:54)
--- NOTE | 2021-03-05 12:31 | NUR ---
RN NOTES PATIENT RETURNED FROM EGD/COLONOSCOPY PROCEDURE VIA GURNEY, ACCOMPANIED BY 2 OR NURSES. BEDSIDE REPORT DONE. NOTED W/ GASTRITIS AND HEMORRHOID IN PROCEDURE. RESUME PREVIOUS ORDERS.
--- NOTE | 2021-03-05 14:01 | NUR ---
RN NOTES PATIENT PROVIDED VERBAL CONSENT FOR CT ANGIO AND CONTRAST ADMINISTRATION. PATIENT IS A/O X4, ABLE TO MAKE NEEDS KNOWN, UNDERSTANDS CONCEPTS, BUT LEGALLY BLIND. EXPLAINED TO PATIENT THAT HE CAN BE ASSISTED WITH SIGNING FORM BUT PATIENT INSISTED ON NOT BEING ABLE TO SIGN BECAUSE HE IS BLIND. VERBAL CONSENT TAKEN. FORM SIGNED BY ME AND WITNESSED BY ANOTHER RN MELANIE.
--- NOTE | 2021-03-05 15:20 | NUR ---
RN NOTES SPOKE W/ ADRIENNE FROM ACETYLENE TORCH OPERATOR; PATIENT WILL HAVE PROCEDURE LATER TODAY.
[2021-03-05 16:00] VITALS: BP 149/68
--- NOTE | 2021-03-05 18:00 | NUR ---
RN NOTES SPOKE W/ TOP WADDY AND STATED THAT CT ANGIO IS MOVED TO WEDNESDAY BECAUSE "PATIENT HAS HIGH CREATININE AND IS A DIALYSIS PATIENT". EXPLAINED THAT PATIENT WILL HAVE HD TODAY AFTER CT ANGIO PROCEDURE BUT STATED THAT PROCEDURE IS RESCHEDULED FOR NEXT WEEK.
--- NOTE | 2021-03-05 18:37 | NUR ---
RN NOTES PATIENT STATED THAT HE WANTS TO LEAVE AMA; DR. RAMON MADE AWARE.
--- NOTE | 2021-03-05 18:49 | NUR ---
RN NOTES EXPLAINED TO PATIENT RISKS OF LEAVING AMA BUT PATIENT INSISTED ON GOING. DR. RAMON MADE AWARE OF PATIENT'S INTENTION. GIRLFRIEND ENRIQEU NO AT BEDSIDE ASSISTING PATIENT. IV LINE REMOVED AND TELE BOX RETRIEVED. PATIENT REFUSED TO HAVE PHOTOS OF SKIN ISSUES TO BE TAKEN. AMA FORM UNABLE TO BE SIGNED BY PATIENT BUT PROVIDED VERBAL CONSENT. FORM SIGNED BY ME AND WITNESSED BY ANOTHER RN MELANIE. CHARGE NURSE AND MD AWARE.
--- NOTE | 2021-03-05 19:02 | NUR ---
RN NOTES INCIDENT REPORT DONE. Unique Id: [id number]
== END 2021-03-05 19:10 | disposition left against medical advice (07) | DRG 393 ==
LOC: MERGE 21:56 → MED 21:56 → TELE 03-04 03:17
PROVIDERS: ADMIT Hospitalist; ATTEND Nurse Practitioner Acute Care
PROC: 0DB68ZX Excision of Stomach, Via Natural or Artificial Opening Endoscopic, Diagnostic (ICD-10-PCS; principal; 2021-03-05)
PROC: 0DJD8ZZ Inspection of Lower Intestinal Tract, Via Natural or Artificial Opening Endoscopic (ICD-10-PCS; 2021-03-05)
PROC: 5A1D70Z Performance of Urinary Filtration, Intermittent, Less than 6 Hours Per Day (ICD-10-PCS; 2021-03-05)
DX: K64.8 Other hemorrhoids (principal); I21.4 Non-ST elevation (NSTEMI) myocardial infarction; N18.6 End stage renal disease; I12.0 Hypertensive chronic kidney disease with stage 5 chronic kidney disease or end stage renal disease; G82.20 Paraplegia, unspecified; D62 Acute posthemorrhagic anemia; K29.70 Gastritis, unspecified, without bleeding; I25.10 Atherosclerotic heart disease of native coronary artery without angina pectoris; E11.22 Type 2 diabetes mellitus with diabetic chronic kidney disease; Z99.2 Dependence on renal dialysis; E78.5 Hyperlipidemia, unspecified; E87.5 Hyperkalemia; Z95.5 Presence of coronary angioplasty implant and graft; Z85.118 Personal history of other malignant neoplasm of bronchus and lung; Z82.49 Family history of ischemic heart disease and other diseases of the circulatory system; M89.9 Disorder of bone, unspecified; E03.9 Hypothyroidism, unspecified; E83.39 Other disorders of phosphorus metabolism; Z86.73 Personal history of transient ischemic attack (TIA), and cerebral infarction without residual deficits; M85.9 Disorder of bone density and structure, unspecified; F17.200 Nicotine dependence, unspecified, uncomplicated; Z88.1 Allergy status to other antibiotic agents; Z98.1 Arthrodesis status; R50.9 Fever, unspecified
CPT/HCPCS: 36415; 71045-TC; 80048-TC; 80053-TC; 83735-TC; 84100-TC; 84484-TC; 85025-TC; 85027-TC; 85610-TC; 86706; 86850-TC; 87081-TC; 87340; 88305-TC; 88313-TC; 88342; C9113; G0378; J0878; J2270; J2543; J2704; J3490; J7030; J7060

== ENCOUNTER 2022-03-23 13:16 | Inpatient (IN) | payer OTHER ==
[~2022-03-23] VITALS: Ht 182.9 cm; Wt 75.0 kg
[~2022-03-23 13:16] MED LIST changes: +ACET325T53 PO; +ATOR40TA PO; +CYCL10TA9 PO; +DAPT500V2 IV; +ISOS30TA86 PO; +LEVO75TA7 PO; +MAGN400O6 PO; +METO25TA6 PO; +MORP1SYR2 IV; +OLAN10TA3 PO; +PRED1TAB PO; +PRED5DRO24 OP; +VALP250C3 PO; +[UNRECOGNIZED DRUG - CODE] IV
[2022-03-23 14:31] LABS: BASOPHILS # (AUTO) 0.1 K/uL (0.0-0.2); EOSINOPHILS % (AUTO) 11.3 % (0.0-6.0); HEMATOCRIT 29 % (39-51); HEMOGLOBIN 9.1 g/dL (13.5-17.5); LYMPHOCYTES # (AUTO) 1.4 K/uL (0.8-4.8); LYMPHOCYTES % (AUTO) 14.8 % (20.0-44.0); MEAN CORPUSCULAR HGB CONC 32 g/dl (31.0-36.0); MEAN CORPUSCULAR VOLUME 88 fL (80-96); MONOCYTES # (AUTO) 0.5 K/uL (0.1-1.30); MONOCYTES % (AUTO) 5.5 % (2.0-12.0); NEUTROPHILS # (AUTO) 6.5 K/uL (1.8-8.9); NEUTROPHILS % (AUTO) 67.4 % (43.0-81.0); PLATELET COUNT (AUTO) 120 K/uL (150-450); RED BLOOD CELL COUNT(AUTO) 3.27 MIL/uL (4.5-6.0); WHITE BLOOD COUNT (AUTO) 9.6 K/uL (4.3-11.0)
[2022-03-23] MEDS ORDERED: LEVE750T10 PO (15:11)
[2022-03-23] MEDS ORDERED: PRED5DRO16 LEFTEYE (15:11)
[2022-03-23] MEDS ORDERED: BRIM5DRO3 LEFTEYE (15:11)
[2022-03-23] MEDS ORDERED: DORZ10DR11 LEFTEYE (15:11)
[2022-03-23 16:19] LABS: CALCIUM, SERUM 7.1 mg/dL (8.5-10.1); CARBON DIOXIDE 23 mmol/L (21-32); CHLORIDE 97 mmol/L (98-107); GLUCOSE 81 mg/dL (74-106); SODIUM SERUM 137 mmol/L (136-145)
[2022-03-23 16:30] LABS: CREATININE 11.4 mg/dL (0.6-1.3); POTASSIUM 6.9 mmol/L (3.5-5.1); UREA NITROGEN, BLOOD 86 mg/dL (7-18)
--- NOTE | 2022-03-23 16:38 | NUR ---
CALLED DR. MARTINES FOR NEPHEROLOGY CONSULT LEFT .
[2022-03-23] MEDS ORDERED: SODIUM POLYSTYRENE SULFONATE 15 G/60 ML BOTTLE PO ONE ×2 (17:00→23:30)
[2022-03-23] MEDS ORDERED: CALCIUM CHLORIDE 1,000 MG/10 ML DISP.SYRIN IV ONE (17:00)
[2022-03-23] MEDS ORDERED: SODIUM BICARBONATE SYR 50 MEQ/50 ML DISP.SYRIN IV ONE (17:00)
[2022-03-23] MEDS ORDERED: DEXTROSE 50%-WATER 50 ML DISP.SYRIN IV ONE (17:00)
[2022-03-23] MEDS ORDERED: INSULIN REGULAR, HUMAN 100 UNIT/ML 10 ML VIAL IV ONE (17:00)
[2022-03-23] MEDS ORDERED: ALBUTEROL FS 2.5 MG/3 ML VIAL.NEB NEB ONE (17:00)
--- NOTE | 2022-03-23 17:37 | NUR ---
/ MILIND PAGED REGARDING ADMISSION
[2022-03-23] MEDS ORDERED: SODIUM POLYSTYRENE SULFONATE 15 G/60 ML BOTTLE ONE (17:42)
[2022-03-23] MEDS ORDERED: CALCIUM CHLORIDE 1,000 MG/10 ML DISP.SYRIN ONE (17:43)
[2022-03-23] MEDS ORDERED: SODIUM BICARBONATE SYR 50 MEQ/50 ML DISP.SYRIN ONE (17:43)
[2022-03-23] MEDS ORDERED: INSULIN REGULAR, HUMAN 100 UNIT/ML 10 ML VIAL ONE (18:24)
[2022-03-23] MEDS ORDERED: DEXTROSE 50%-WATER 50 ML DISP.SYRIN ONE ×3 (18:24→23:00)
[2022-03-23] MEDS ORDERED: ALBUTEROL FS 2.5 MG/3 ML VIAL.NEB ONE (18:25)
--- NOTE | 2022-03-23 18:57 | NUR ---
NEPHROLOGY AT BED SIDE (DR VALENTE)
--- NOTE | 2022-03-23 18:57 | NUR ---
COVID SWAB COLLECTED AND SENT TO LAB
[2022-03-23] MEDS ORDERED: Z GUARD REMEDY 4 OZ OINT TP PRN (19:00)
[2022-03-23] MEDS ORDERED: MAGNESIUM HYDROXIDE 30 ML UDC PO PRN (19:00)
[2022-03-23] MEDS ORDERED: MAG HYDROX/AL HYDROX/SIMETH 30 ML UDC PO PRN (19:00)
[2022-03-23] MEDS ORDERED: ACETAMINOPHEN 325 MG TABLET PO PRN (19:00)
[2022-03-23] MEDS ORDERED: ONDANSETRON HCL/PF 4 MG/2 ML VIAL IVP PRN (19:00)
--- NOTE | 2022-03-23 19:55 | NUR ---
HD CONSENT PT LEGALLY BLIND AND VERBALLY GAVE CONSENT FOR HD WITNESSED WITH 2 RN'S; VERBALIZED UNDERSTANDING
--- NOTE | 2022-03-23 20:15 | NUR ---
REPORT GIVEN TO ARISTEO Farmer RN FOR ARMIDA
--- NOTE | 2022-03-23 20:20 | NUR ---
ACCUCHECK 37; ADMINISTERED D50 IV ORDERED FROM DR. MCNEAL. OFFERED PT JUICES. WILL RECHECK BS
[2022-03-23] MEDS ORDERED: DEXTROSE 50%-WATER 50 ML DISP.SYRIN IVP ONE (20:30)
[2022-03-23] MEDS: LEVETIRACETAM (250 MG) 250 MG TABLET PO SCH (21:00)
--- NOTE | 2022-03-23 21:30 | NUR ---
MANAGER OF PROCUREMENTFIELD SUPERINTENDENT NOTE RECEIVED REPORT FROM ER NURSE SHO. PT BEING ADMITTED IN ROOM 304-1 FOR HEMODIALYSIS. PT IS A/O X3, ABLE TO VERBALIZE NEED. PT ON ROOM AIR. NO SOB , NO C/O PAIN AT THIS TIME. HEMODIALYSIS IS STARTED. PT'S BS CHECKED, BS: 40. PT PULLS HIS IV. NEW IV ACCESS INSERTED TO RIGHT FA 20G. HAS HD CATHETER TO RIGHT GROIN AREA. PT'S BS RECHECKED. BS: 34. PT'S SKIN ASSESSED. PT HAS BRUISES, AND REDNESS TO LEFT ARM, SCABS TO BLE , AND DRY FEET, AMPUTATIONS TO TOES TO RIGHT, AND LEFT FEET. PT IS LEGALLY BLIND, AND BEDBOUND. SAFETY MEASURES IN PLACE: BED IN LOW POSITION, SR UP X3, CALL LIGHT WITHIN REACH. WILL CONTINUE TO MONITOR PT.
--- NOTE | 2022-03-23 21:44 | NUR ---
PT TRANSFERRED TO 304-1 VIA ACLS PROTOCOL. VSS. ALL BELONGINGS WITH PT. ENDORSED CARE AND TO PATRICIA Farmer RN
--- NOTE | 2022-03-23 22:30 | NUR ---
ADMISSION LIAISON NOTE ACCU CHECK DONE. PT'S BS: 34, AND PT'S BP IS DECREASING TO 80. MD MARTINES CALLED. NEW ORDER RECEIVED FOR MIDODRINE, ALBUMIN, KAYEXALATE, AND DEXTROSE. ORDER CARRIED OUT. DEXTROSE ADMINISTERED TO PT. BS GOES UP TO 101. MIDODRINE ALSO ADMINISTERED TO PT. BP INCREASES TO 137/86.
[2022-03-23] MEDS ORDERED: DEXTROSE 50%-WATER 50 ML DISP.SYRIN IVP PRN (23:30)
[2022-03-23] MEDS ORDERED: ALBUMIN 25% 12.5 GM/50 ML BOTTLE IV ONE (23:30)
[2022-03-23] MEDS ORDERED: MIDODRINE HCL (5MG) 5 MG TABLET ONE (23:30)
[2022-03-23] MEDS: MIDODRINE HCL (5MG) 5 MG TABLET PO SCH (23:33)
[2022-03-24] VITALS: BP 185/105
--- NOTE | 2022-03-24 00:45 | NUR ---
DIGITAL IMAGING SPECIALIST NOTE DIALYSIS IS COMPLETED. DIALYSIS NURSE REMOVED 500 ML OF FLUID. PT'S BS: 116 NOW, BP: 137/86. PT IN STABLE CONDITION. WILL CONTINUE TO MONITOR PT. ORDER RECEIVED FOR STAT BMP. PT'S K LEVEL IS NOW: 3.4.
[2022-03-24 01:17] LABS: POTASSIUM 3.4 mmol/L (3.5-5.1)
[2022-03-24 01:19] LABS: CREATININE 7.8 mg/dL (0.6-1.3)
[2022-03-24 04:00] VITALS: BP 190/104
[2022-03-24] MEDS: MIDODRINE HCL (5MG) 5 MG TABLET PO SCH ×3 (05:00→21:00)
[2022-03-24 06:17] LABS: BASOPHILS # (AUTO) 0.1 K/uL (0.0-0.2); BASOPHILS % (AUTO) 1.1 % (0.0-2.0); EOSINOPHILS % (AUTO) 6.7 % (0.0-6.0); HEMATOCRIT 25 % (39-51); HEMOGLOBIN 8.2 g/dL (13.5-17.5); LYMPHOCYTES # (AUTO) 0.9 K/uL (0.8-4.8); LYMPHOCYTES % (AUTO) 11.1 % (20.0-44.0); MEAN CORPUSCULAR HGB CONC 33 g/dl (31.0-36.0); MEAN CORPUSCULAR VOLUME 86 fL (80-96); MONOCYTES # (AUTO) 0.6 K/uL (0.1-1.30); MONOCYTES % (AUTO) 7.7 % (2.0-12.0); NEUTROPHILS % (AUTO) 73.4 % (43.0-81.0); PLATELET COUNT (AUTO) 95 K/uL (150-450); WHITE BLOOD COUNT (AUTO) 8.2 K/uL (4.3-11.0)
--- NOTE | 2022-03-24 06:30 | NUR ---
TEXTILE EXAMINER NOTE PT REFUSES TO HAVE PICTURES TAKEN FOR SKIN ISSUES. CHARGE NURSE MADE AWARE. PT ALSO REFUSED KEPPRA AFTER DIALYSIS. HE STATED THAT HE WAS TIRED, AND HE WOULD LIKE TO REST. PT'S BS: 79. PT GIVEN JUICES. PT'S BP: 190/104. MD CALLED, AND MESSAGE LEFT. AWAITING FOR MD TO CALL BACK. CHARGE NURSE BRANDON AWARE. WILL ENDORSE TO MORNING NURSE HECTOR.
[2022-03-24 06:54] LABS: CALCIUM, SERUM 7.2 mg/dL (8.5-10.1); MAGNESIUM 1.9 mg/dL (1.8-2.4); POTASSIUM 4.1 mmol/L (3.5-5.1)
[2022-03-24 07:20] LABS: CREATININE 8.8 mg/dL (0.6-1.3); PHOSPHORUS 8.9 mg/dL (2.5-4.9)
--- NOTE | 2022-03-24 07:30 | NUR ---
MANAGER ERP NOTES PT IN BED, ASLEEP, EASY TO AROUSE, ALERT AND VERBALLY RESPONSIVE, DENIES PAIN, NOT IN DISTRESS, CALL LIGHT WITHIN REACH, KEPT WARM AND COMFORTABLE IN BED.
[2022-03-24 08:00] VITALS: BP 158/94
[2022-03-24] MEDS: LEVETIRACETAM (250 MG) 250 MG TABLET PO SCH ×2 (09:37→21:56)
--- NOTE | 2022-03-24 11:20 | NUR ---
HEAT TREATING FURNACE TENDER NOTES PT SEEN AND EXAMINED BY DR. KING, PER MD, PT MAY BE DICHARGED HOME AFTER HD.
[2022-03-24 12:00] VITALS: BP 162/98
[2022-03-24 12:58] LABS: LYMPHOCYTES % (MANUAL) 12 % (16-48); NEUTROPHILS % (MANUAL) 76 (42-76)
[2022-03-24 12:59] LABS: EOSINOPHILS % (MANUAL) 5 % (0-4); MONOCYTES % (MANUAL) 7 % (0-11.0)
[2022-03-24] MEDS ORDERED: INSULIN REGULAR, HUMAN 100 UNIT/ML 3 ML VIAL SQ PRN (13:30)
[2022-03-24] MEDS ORDERED: DEXTROSE 50%-WATER 50 ML DISP.SYRIN IV PRN (13:30)
[2022-03-24] MEDS: BLOOD SUGAR DIAGNOSTIC 1 EACH STRIP IN SCH ×2 (17:26→23:12)
[2022-03-24 18:02] VITALS: BP 150/94
--- NOTE | 2022-03-24 18:14 | NUR ---
MANAGER DRUG NOTES PT IN BED, AWAKE, ALERT AND ORIENTED, DENIES PAIN, NOT IN DISTRESS, WITH GOOD ORAL INTAKE, SNACKS AND DRINKS PROVIDED, BLOOD SUGAR CHECKED, NO HYPER/HYPOGLYCEMIA NOTED, ABOUT TO START HEMODIALYSIS, HARESHN INFORMED OF PLAN OF CARE, VERBALIZED UNDERSTANDING.
--- NOTE | 2022-03-24 19:30 | NUR ---
MANAGEMENT SPECIALIST OPENING NOTE RECEIVED PT IN BED, ASLEEP, EASY TO AROUSE. PT A/O X3, ABLE TO MAKE NEEDS KNOWN. NO RESPIRATORY DISTRESS, NO C/O PAIN OR DISCOMFORT AT THIS TIME. PT IS HAVING HEMODIALYSIS SINCE 1800. HD NURSE PRESENT AT BED SIDE. IV ACCESS TO RIGHT FA, PATENT, AND INTACT.SAFETY PRECAUTIONS IN PLACE: CALL LIGHT WITHIN REACH, BED LOCKED, IN LOW POSITION, SR UP X 3. WILL MONITOR ACCORDINGLY.
[2022-03-24 20:32] VITALS: BP 138/89
--- NOTE | 2022-03-24 21:00 | NUR ---
CONTINUING EDUCATION SPECIALIST NOTE HEMODIALYSIS IS COMPLETED. 2.5 L OF FLUID WAS REMOVED. PT TOLERATED HD WELL.
[2022-03-25 00:12] VITALS: BP 156/99
[2022-03-25] MEDS: MIDODRINE HCL (5MG) 5 MG TABLET PO SCH ×2 (05:00→13:18)
[2022-03-25] MEDS: BLOOD SUGAR DIAGNOSTIC 1 EACH STRIP IN SCH ×2 (06:22→12:36)
--- NOTE | 2022-03-25 06:47 | NUR ---
ACADEMIC INTERN CLOSING NOTE LEFT PT IN BED, ASLEEP, EASY TO AROUSE. PT A/O X3, ABLE TO MAKE NEEDS KNOWN. NO RESPIRATORY DISTRESS, NO C/O PAIN OR DISCOMFORT AT THIS TIME. IV ACCESS TO RIGHT FA, PATENT, AND INTACT. MIDODRINE NOT ADMINISTERED TO PT DUE TO PT'S HIGH BP, BP: 164/95. SAFETY PRECAUTIONS IN PLACE: CALL LIGHT WITHIN REACH, BED LOCKED, IN LOW POSITION, SR UP X 3. WILL ENDORSE PT TO AM SHIFT NURSE.
[2022-03-25 08:00] VITALS: BP 152/88
[2022-03-25 09:29] LABS: BASOPHILS # (AUTO) 0.1 K/uL (0.0-0.2); BASOPHILS % (AUTO) 1.3 % (0.0-2.0); EOSINOPHILS % (AUTO) 11.3 % (0.0-6.0); HEMATOCRIT 24 % (39-51); HEMOGLOBIN 7.7 g/dL (13.5-17.5); LYMPHOCYTES # (AUTO) 1.1 K/uL (0.8-4.8); LYMPHOCYTES % (AUTO) 18.1 % (20.0-44.0); MEAN CORPUSCULAR HGB CONC 32 g/dl (31.0-36.0); MEAN CORPUSCULAR VOLUME 91 fL (80-96); MONOCYTES # (AUTO) 0.4 K/uL (0.1-1.30); MONOCYTES % (AUTO) 6.8 % (2.0-12.0); NEUTROPHILS # (AUTO) 3.9 K/uL (1.8-8.9); NEUTROPHILS % (AUTO) 62.5 % (43.0-81.0); PLATELET COUNT (AUTO) 105 K/uL (150-450); RED BLOOD CELL COUNT(AUTO) 2.68 MIL/uL (4.5-6.0); WHITE BLOOD COUNT (AUTO) 6.2 K/uL (4.3-11.0)
[2022-03-25 10:00] LABS: CALCIUM, SERUM 7.3 mg/dL (8.5-10.1); MAGNESIUM 1.9 mg/dL (1.8-2.4); POTASSIUM 4.8 mmol/L (3.5-5.1)
[2022-03-25 10:26] LABS: CREATININE 7.7 mg/dL (0.6-1.3); PHOSPHORUS 8.4 mg/dL (2.5-4.9)
[2022-03-25] MEDS: LEVETIRACETAM (250 MG) 250 MG TABLET PO SCH (10:40)
[2022-03-25 13:18] VITALS: BP 152/88
[2022-03-25] MEDS ORDERED: MIDO5TAB4 PO (13:31)
== END 2022-03-25 16:00 | disposition home or self-care (01) | DRG 640 ==
LOC: ER 13:26 → TRANSITION 18:39 → TELE 19:47
PROVIDERS: ADMIT Internal Medicine; ATTEND Student in an Organized Health Care Education/Training Program
PROC: 5A1D70Z Performance of Urinary Filtration, Intermittent, Less than 6 Hours Per Day (ICD-10-PCS; principal; 2022-03-23)
DX: E87.70 Fluid overload, unspecified (principal); N18.6 End stage renal disease; I12.0 Hypertensive chronic kidney disease with stage 5 chronic kidney disease or end stage renal disease; G82.20 Paraplegia, unspecified; E87.5 Hyperkalemia; Z20.822 Contact with and (suspected) exposure to COVID-19; E11.22 Type 2 diabetes mellitus with diabetic chronic kidney disease; I25.10 Atherosclerotic heart disease of native coronary artery without angina pectoris; Z95.5 Presence of coronary angioplasty implant and graft; Z99.2 Dependence on renal dialysis; Z91.15 Patient's noncompliance with renal dialysis; E78.00 Pure hypercholesterolemia, unspecified; Z88.1 Allergy status to other antibiotic agents; Z91.011 Allergy to milk products; Z91.018 Allergy to other foods; Z79.899 Other long term (current) drug therapy; Z86.73 Personal history of transient ischemic attack (TIA), and cerebral infarction without residual deficits; Z85.118 Personal history of other malignant neoplasm of bronchus and lung; G40.909 Epilepsy, unspecified, not intractable, without status epilepticus; H54.8 Legal blindness, as defined in USA; E78.5 Hyperlipidemia, unspecified; E03.9 Hypothyroidism, unspecified; M89.8X9 Other specified disorders of bone, unspecified site; Z59.00 Homelessness unspecified
CPT/HCPCS: 36415; 71045-TC; 80048-TC; 82962-TC; 83735-TC; 84100-TC; 84484-TC; 85025-TC; 86706; 87081-TC; 87340; 90935-TC; G0378; J1815; J3490; J7030; P9047

== ENCOUNTER 2022-12-21 15:51 | Inpatient (IN) | payer OTHER ==
[~2022-12-21] VITALS: Ht 167.6 cm; Wt 77.1 kg
[~2022-12-21 15:51] MED LIST changes: -ACET325T53 PO; -AMLO-212 PO; -ATOR40TA PO; +BRIM5DRO3 EACHEYE; -CYCL10TA9 PO; -DAPT500V2 IV; +DORZ10DR11 EACHEYE; -ISOS30TA86 PO; +LEVE750T10 PO; -LEVO75TA7 PO; -MAGN400O6 PO; -METO25TA6 PO; +MIDO5TAB4 PO; -MORP1SYR2 IV; -OLAN10TA3 PO; -OSEL75CA PO; -PRED1TAB PO; +PRED5DRO16 EACHEYE; -PRED5DRO24 OP; -VALP250C3 PO; -[UNRECOGNIZED DRUG - CODE] IV
[2022-12-21 16:43] LABS: HEMATOCRIT 29 % (39-51); HEMOGLOBIN 9.2 g/dL (13.5-17.5); MEAN CORPUSCULAR HEMOGLOBIN 28 PG (26.0-33.0); MEAN CORPUSCULAR HGB CONC 32 g/dl (31.0-36.0); MEAN CORPUSCULAR VOLUME 87 fL (80-96); RED BLOOD CELL COUNT(AUTO) 3.34 MIL/uL (4.5-6.0); RED CELL DISTRIBUTION WIDTH 18.2 % (11.5-15.0); WHITE BLOOD COUNT (AUTO) 6.3 K/uL (4.3-11.0)
[2022-12-21 16:44] LABS: BASOPHILS % (AUTO) 0.2 % (0.0-2.0); EOSINOPHILS # (AUTO) 1.3 K/uL (0.0-0.7); EOSINOPHILS % (AUTO) 19.8 % (0.0-6.0); LYMPHOCYTES # (AUTO) 1.4 K/uL (0.8-4.8); LYMPHOCYTES % (AUTO) 22.5 % (20.0-44.0); MONOCYTES # (AUTO) 0.6 K/uL (0.1-1.30); MONOCYTES % (AUTO) 8.9 % (2.0-12.0); NEUTROPHILS # (AUTO) 3.1 K/uL (1.8-8.9); NEUTROPHILS % (AUTO) 48.6 % (43.0-81.0); PLATELET COUNT (AUTO) 108 K/uL (150-450)
[2022-12-21 16:51] LABS: CALCIUM, SERUM 8.5 mg/dL (8.5-10.1)
[2022-12-21 16:58] LABS: CREATININE 9.7 mg/dL (0.6-1.3)
[2022-12-21] MEDS ORDERED: MORPHINE SULFATE INJ 2 MG/ML DISP.SYRIN IV ONE (17:30)
[2022-12-21] MEDS ORDERED: DICY10CA13 PO (17:32)
[2022-12-21] MEDS ORDERED: ALBU2.5V38 IH (17:32)
[2022-12-21] MEDS ORDERED: ATOR40TA PO (17:32)
[2022-12-21] MEDS ORDERED: ISOS60TA72 PO (17:32)
[2022-12-21] MEDS ORDERED: SEVE2.4P3 PO (17:32)
[2022-12-21] MEDS ORDERED: HYDR10SY16 PO (17:32)
[2022-12-21] MEDS ORDERED: CALC667C6 PO (17:32)
[2022-12-21] MEDS ORDERED: METO25TA6 PO (17:32)
[2022-12-21] MEDS ORDERED: MIDO10TA PO (17:32)
[2022-12-21] MEDS ORDERED: HYDR-4076 PO (17:32)
[2022-12-21] MEDS ORDERED: MORPHINE SULFATE INJ 2 MG/ML DISP.SYRIN ONE (17:52)
[2022-12-21 18:28] VITALS: O2SAT 96
[2022-12-21] MEDS ORDERED: hydrALAZINE HCL IV 20 MG VIAL IV ONE (18:30)
[2022-12-21] MEDS ORDERED: hydrALAZINE HCL IV 20 MG VIAL ONE (18:31)
[2022-12-21] MEDS ORDERED: Z GUARD REMEDY 4 OZ OINT TP PRN (22:00)
[2022-12-21] MEDS ORDERED: ATORVASTATIN 40 MG TABLET PO SCH (22:00)
[2022-12-21] MEDS ORDERED: ONDANSETRON HCL/PF 4 MG/2 ML VIAL IVP PRN (22:00)
[2022-12-21] MEDS ORDERED: DEXTROSE 50%-WATER 50 ML DISP.SYRIN IV PRN (22:00)
[2022-12-21] MEDS ORDERED: ACETAMINOPHEN 325 MG TABLET PO PRN (22:00)
[2022-12-21] MEDS ORDERED: INSULIN REGULAR, HUMAN 100 UNIT/ML 3 ML VIAL SQ PRN (22:00)
[2022-12-21] MEDS: BLOOD SUGAR DIAGNOSTIC 1 EACH STRIP IN SCH (23:23)
[2022-12-21] MEDS: HYDROCODONE/APAP 5/325MG TABLET PO PRN ×2 (23:27→23:35)
[2022-12-22 04:53] VITALS: BP 167/97; TEMP 96.8
[2022-12-22] MEDS ORDERED: PANTOPRAZOLE 40 MG TABLET.DR PO SCH (07:30)
[2022-12-22 07:52] LABS: BASOPHILS # (AUTO) 0.1 K/uL (0.0-0.2); BASOPHILS % (AUTO) 2.4 % (0.0-2.0); EOSINOPHILS # (AUTO) 1.1 K/uL (0.0-0.7); EOSINOPHILS % (AUTO) 19.4 % (0.0-6.0); HEMATOCRIT 28 % (39-51); HEMOGLOBIN 8.9 g/dL (13.5-17.5); LYMPHOCYTES # (AUTO) 1.1 K/uL (0.8-4.8); LYMPHOCYTES % (AUTO) 20.5 % (20.0-44.0); MEAN CORPUSCULAR HEMOGLOBIN 28 PG (26.0-33.0); MEAN CORPUSCULAR HGB CONC 31 g/dl (31.0-36.0); MEAN CORPUSCULAR VOLUME 89 fL (80-96); MONOCYTES # (AUTO) 0.5 K/uL (0.1-1.30); MONOCYTES % (AUTO) 8.8 % (2.0-12.0); NEUTROPHILS # (AUTO) 2.7 K/uL (1.8-8.9); NEUTROPHILS % (AUTO) 48.9 % (43.0-81.0); PLATELET COUNT (AUTO) 100 K/uL (150-450); RED BLOOD CELL COUNT(AUTO) 3.21 MIL/uL (4.5-6.0); RED CELL DISTRIBUTION WIDTH 18.4 % (11.5-15.0); WHITE BLOOD COUNT (AUTO) 5.5 K/uL (4.3-11.0)
[2022-12-22 08:00] VITALS: BP 169/91; TEMP 98.4; O2SAT 96
[2022-12-22] MEDS: SEVELAMER CARBONATE 800 MG POWD.PACK PO SCH ×2 (08:00→13:00)
[2022-12-22] MEDS ORDERED: CALCIUM ACETATE 667 MG CAP/TAB PO SCH (08:00)
[2022-12-22 08:02] LABS: CALCIUM, SERUM 8.6 mg/dL (8.5-10.1); MAGNESIUM 2.2 mg/dL (1.8-2.4); PHOSPHORUS 7.9 mg/dL (2.5-4.9); POTASSIUM 5.1 mmol/L (3.5-5.1)
[2022-12-22 08:07] LABS: CREATININE 10.4 mg/dL (0.6-1.3)
[2022-12-22] MEDS: BLOOD SUGAR DIAGNOSTIC 1 EACH STRIP IN SCH ×2 (08:10→12:02)
[2022-12-22 08:23] LABS: THYROID STIMULATING HORMONE 2.937 uIU/mL (0.358-3.74)
[2022-12-22] MEDS ORDERED: HEPARIN SODIUM, PORCINE 5000 UNITS/1 ML VIAL SQ SCH (09:00)
[2022-12-22] MEDS: ISOSORBIDE MONONITRATE (30MG) 30 MG TAB.SR.24H PO SCH ×2 (09:00→16:57)
[2022-12-22] MEDS ORDERED: prednisoLONE ACET 1% OPHT DROP 5 ML BOTTLE EACHEYE SCH (09:00)
[2022-12-22] MEDS ORDERED: METOPROLOL TARTRATE 25 MG TABLET PO SCH (09:00)
[2022-12-22] MEDS: hydrALAZINE HCL 25 MG TABLET PO SCH ×4 (09:00→16:56)
[2022-12-22] MEDS ORDERED: BRIMONIDINE TARTRATE OPHT SOLN 5 ML BOTTLE EACHEYE SCH (09:00)
[2022-12-22] MEDS ORDERED: LEVETIRACETAM (250 MG) 250 MG TABLET PO SCH (09:00)
[2022-12-22] MEDS ORDERED: NITROGLYCERIN PACKET 1 GM PACKET TOP SCH (09:00)
[2022-12-22] MEDS ORDERED: TIMOLOL MAL/DORZOLAM HCL OPHTH 10 ML BOTTLE EACHEYE SCH (09:00)
[2022-12-22] MEDS: hydrOXYzine HCL SYRUP 10 MG/5 ML UDC PO SCH ×4 (09:00→17:00)
[2022-12-22] MEDS ORDERED: MORPHINE SULFATE INJ 2 MG/ML DISP.SYRIN IV ONE (13:30)
[2022-12-22 16:00] VITALS: BP 160/93; TEMP 96.5; O2SAT 92
[2022-12-22 16:57] VITALS: BP 160/93
[2022-12-23 10:07] LABS: HEPATITIS B SURFACE AB Non Reactive (.)
== END 2022-12-22 17:47 | disposition left against medical advice (07) | DRG 291 ==
LOC: ER 16:10 → TELE 21:45 → MED 12-22 13:02
PROVIDERS: ADMIT Nurse Practitioner Family
PROC: 5A1D70Z Performance of Urinary Filtration, Intermittent, Less than 6 Hours Per Day (ICD-10-PCS; principal; 2022-12-22)
DX: I13.2 Hypertensive heart and chronic kidney disease with heart failure and with stage 5 chronic kidney disease, or end stage renal disease (principal); I50.33 Acute on chronic diastolic (congestive) heart failure; N18.6 End stage renal disease; G82.20 Paraplegia, unspecified; I24.9 Acute ischemic heart disease, unspecified; E11.22 Type 2 diabetes mellitus with diabetic chronic kidney disease; I25.10 Atherosclerotic heart disease of native coronary artery without angina pectoris; Z20.822 Contact with and (suspected) exposure to COVID-19; E78.00 Pure hypercholesterolemia, unspecified; Z95.5 Presence of coronary angioplasty implant and graft; Z99.2 Dependence on renal dialysis; Z88.1 Allergy status to other antibiotic agents; Z91.011 Allergy to milk products; Z91.018 Allergy to other foods; Z79.51 Long term (current) use of inhaled steroids; Z79.899 Other long term (current) drug therapy; H54.8 Legal blindness, as defined in USA; D64.9 Anemia, unspecified; G40.909 Epilepsy, unspecified, not intractable, without status epilepticus; Z85.118 Personal history of other malignant neoplasm of bronchus and lung; Z98.890 Other specified postprocedural states; Z89.422 Acquired absence of other left toe(s); Z89.421 Acquired absence of other right toe(s); E03.9 Hypothyroidism, unspecified; Z79.4 Long term (current) use of insulin; Z86.73 Personal history of transient ischemic attack (TIA), and cerebral infarction without residual deficits
CPT/HCPCS: 36415; 71045-TC; 80048-TC; 82728-TC; 82962-TC; 83540-TC; 83735-TC; 84100-TC; 84443-TC; 84484-TC; 85025-TC; 86706; 87081-TC; 87340; 90935-TC; 93307-TC; G0378; J0360; J1644; J1815; J2270; J7030; Q0177

== ENCOUNTER 2023-02-11 18:32 | Inpatient (IN) | payer OTHER, MEDICAID ==
[~2023-02-11] VITALS: Ht 182.9 cm; Wt 70.3 kg
[~2023-02-11 18:32] MED LIST changes: +ALBU2.5V38 IH; +ATOR40TA PO; +CALC667C6 PO; +DICY10CA13 PO; +HYDR-4076 PO; +HYDR10SY16 PO; +ISOS60TA72 PO; +METO25TA6 PO; +MIDO10TA PO; -MIDO5TAB4 PO; +SEVE2.4P3 PO
[2023-02-12 00:30] VITALS: BP 144/93; TEMP 98.8; O2SAT 96
[2023-02-12] MEDS ORDERED: hydrALAZINE HCL IV 20 MG VIAL IV PRN (00:30)
[2023-02-12] MEDS ORDERED: PANTOPRAZOLE 40 MG VIAL IV SCH (00:30)
[2023-02-12] MEDS ORDERED: diphenhydrAMINE HCL ELIX 25 MG/10 ML UDC PO PRN (00:30)
[2023-02-12] MEDS ORDERED: HALOPERIDOL LACTATE INJ 5 MG/ML VIAL IM ONE (00:30)
[2023-02-12] MEDS ORDERED: QUETIAPINE FUMARATE 25 MG TABLET PO SCH (00:30)
[2023-02-12] MEDS ORDERED: GABA-532 PO (00:59)
[2023-02-12] MEDS ORDERED: CALC667T2 PO (00:59)
[2023-02-12] MEDS ORDERED: ASPI-1169 PO (00:59)
[2023-02-12] MEDS ORDERED: LEVE500T9 PO (00:59)
[2023-02-12] MEDS ORDERED: MULT-24 PO (00:59)
[2023-02-12] MEDS ORDERED: CLOT12CR TP (00:59)
[2023-02-12] MEDS ORDERED: HALO100A2 IM (00:59)
[2023-02-12] MEDS ORDERED: DIPH50CA4 PO (00:59)
[2023-02-12] MEDS ORDERED: HYDR20VI4 IV (00:59)
[2023-02-12] MEDS ORDERED: SEVE800T8 PO (00:59)
[2023-02-12 06:33] LABS: BASOPHILS # (AUTO) 0.1 K/uL (0.0-0.2); EOSINOPHILS # (AUTO) 0.6 K/uL (0.0-0.7); EOSINOPHILS % (AUTO) 11.5 % (0.0-6.0); HEMATOCRIT 25 % (39-51); HEMOGLOBIN 8.1 g/dL (13.5-17.5); INR 1.11 (0.91-1.10); LYMPHOCYTES # (AUTO) 1.1 K/uL (0.8-4.8); MEAN CORPUSCULAR HEMOGLOBIN 28 PG (26.0-33.0); MEAN CORPUSCULAR HGB CONC 33 g/dl (31.0-36.0); MEAN CORPUSCULAR VOLUME 84 fL (80-96); MONOCYTES # (AUTO) 0.6 K/uL (0.1-1.30); MONOCYTES % (AUTO) 11.6 % (2.0-12.0); NEUTROPHILS # (AUTO) 2.5 K/uL (1.8-8.9); NEUTROPHILS % (AUTO) 51.9 % (43.0-81.0); PARTIAL THROMBOPLASTIN TIME 33.5 SEC (24.3-34.3); PLATELET COUNT (AUTO) 120 K/uL (150-450); PROTHROMBIN TIME 11.7 SECS (9.2-11.1); RED BLOOD CELL COUNT(AUTO) 2.91 MIL/uL (4.5-6.0); WHITE BLOOD COUNT (AUTO) 4.8 K/uL (4.3-11.0)
[2023-02-12 06:53] LABS: PHOSPHORUS 4.3 mg/dL (2.5-4.9); POTASSIUM 4.1 mmol/L (3.5-5.1)
[2023-02-12] MEDS ORDERED: SEVELAMER CARBONATE 800 MG TABLET PO SCH (08:00)
[2023-02-12] MEDS ORDERED: CALCIUM ACETATE 667 MG CAP/TAB PO SCH (08:00)
[2023-02-12] MEDS ORDERED: IV SET PRIMARY PUMP SET 1 EA INFUS.SET MC ONE (08:07)
[2023-02-12] MEDS ORDERED: IV NS 0.9% 3,000 ML ONE (08:07)
[2023-02-12] MEDS ORDERED: IODIXANOL 150 ML IV ONE (08:07)
[2023-02-12] MEDS ORDERED: NITROGLYCERIN IN 5 % DEXTROSE 250 ML IV ONE (08:07)
[2023-02-12] MEDS ORDERED: LIDOCAINE HCL/MPF 1% 30 ML VIAL IJ ONE (08:07)
[2023-02-12] MEDS ORDERED: Z GUARD REMEDY 4 OZ OINT TP PRN (08:30)
[2023-02-12] MEDS ORDERED: CLOTRIMAZOLE 1% 15 GM TUBE TP SCH (09:00)
[2023-02-12] MEDS ORDERED: LEVETIRACETAM (250 MG) 250 MG TABLET PO SCH (09:00)
[2023-02-12] MEDS ORDERED: ASPIRIN 81 MG TAB.CHEW PO SCH (09:00)
[2023-02-12] MEDS ORDERED: FENTANYL PF 100MCG/2ML AMPUL ONE (09:11)
[2023-02-12] MEDS ORDERED: MIDAZOLAM HCL 2 MG/2ML VIAL ONE (09:11)
[2023-02-12 09:20] LABS: EOSINOPHILS % (MANUAL) 18 % (0-4); LYMPHOCYTES % (MANUAL) 21 % (16-48); MONOCYTES % (MANUAL) 10 % (0-11.0); NEUTROPHILS % (MANUAL) 51 (42-76); PLATELET ESTIMATE DECREASED
[2023-02-12 10:15] VITALS: BP 157/87; TEMP 98.4; O2SAT 98
[2023-02-12] MEDS ORDERED: APIX2.5T PO (12:29)
[2023-02-12] MEDS ORDERED: ONDA-97 IV (12:29)
[2023-02-12] MEDS ORDERED: ALLA266C2 TP (12:29)
[2023-02-12] MEDS ORDERED: ACET-868 PO (12:29)
[2023-02-12] MEDS ORDERED: PANT40TA2 PO (12:29)
[2023-02-12] MEDS ORDERED: MORP2VIA IV (12:29)
[2023-02-12] MEDS ORDERED: QUET50TA PO (12:29)
== END 2023-02-12 13:30 | disposition left against medical advice (07) | DRG 871 ==
LOC: TELE 23:38
PROVIDERS: ADMIT Student in an Organized Health Care Education/Training Program; ATTEND Student in an Organized Health Care Education/Training Program
PROC: 4A023N7 Measurement of Cardiac Sampling and Pressure, Left Heart, Percutaneous Approach (ICD-10-PCS; principal; 2023-02-12)
PROC: B211YZZ Fluoroscopy of Multiple Coronary Arteries using Other Contrast (ICD-10-PCS; 2023-02-12)
DX: A41.9 Sepsis, unspecified organism (principal); E43 Unspecified severe protein-calorie malnutrition; I50.31 Acute diastolic (congestive) heart failure; J69.0 Pneumonitis due to inhalation of food and vomit; N18.6 End stage renal disease; I21.4 Non-ST elevation (NSTEMI) myocardial infarction; I13.2 Hypertensive heart and chronic kidney disease with heart failure and with stage 5 chronic kidney disease, or end stage renal disease; N39.0 Urinary tract infection, site not specified; Z16.13 Resistance to carbapenem; D68.59 Other primary thrombophilia; G82.20 Paraplegia, unspecified; G95.9 Disease of spinal cord, unspecified; I25.10 Atherosclerotic heart disease of native coronary artery without angina pectoris; N18.9 Chronic kidney disease, unspecified; E11.22 Type 2 diabetes mellitus with diabetic chronic kidney disease; E03.9 Hypothyroidism, unspecified; Z86.73 Personal history of transient ischemic attack (TIA), and cerebral infarction without residual deficits; F41.9 Anxiety disorder, unspecified; F32.A Depression, unspecified; I48.0 Paroxysmal atrial fibrillation; B96.5 Pseudomonas (aeruginosa) (mallei) (pseudomallei) as the cause of diseases classified elsewhere; Z98.61 Coronary angioplasty status; Z87.440 Personal history of urinary (tract) infections; Z99.2 Dependence on renal dialysis; D64.9 Anemia, unspecified; D69.6 Thrombocytopenia, unspecified; E78.5 Hyperlipidemia, unspecified; E87.6 Hypokalemia; G40.909 Epilepsy, unspecified, not intractable, without status epilepticus; V89.2XXS Person injured in unspecified motor-vehicle accident, traffic, sequela; Z74.09 Other reduced mobility; H70.93 Unspecified mastoiditis, bilateral; J32.9 Chronic sinusitis, unspecified
CPT/HCPCS: 36415; 80048-TC; 82962-TC; 83735-TC; 84100-TC; 85025-TC; 85610-TC; 85730-TC; 87081-TC; A4223; G0378; G0500; J1644; J2250; J3010; J3490; J7030; Q9967